=== PATIENT | male | born 2000 | race Caucasian/White ===

== ENCOUNTER 2020-01-04 21:31 | Emergency (ER) | payer OTHER ==
[~2020-01-04] VITALS: Ht 172.7 cm; Wt 85.4 kg
[2020-01-04 21:39] VITALS: BP 127/69; Ht 172.7 cm; Wt 85.4 kg
== END 2020-01-04 23:00 | disposition home or self-care (01) ==
LOC: ED 21:31
DX: S81.812A Laceration without foreign body, left lower leg, initial encounter (principal); X58.XXXA Exposure to other specified factors, initial encounter; Y93.89 Activity, other specified; Y92.89 Other specified places as the place of occurrence of the external cause; Y99.8 Other external cause status
CPT/HCPCS: J2001

== ENCOUNTER 2020-01-06 18:29 | Emergency (ER) | payer OTHER ==
[~2020-01-06] VITALS: Ht 175.3 cm; Wt 84.4 kg
[2020-01-06 18:57] VITALS: BP 122/74; Ht 175.3 cm; Wt 84.4 kg
== END 2020-01-06 19:03 | disposition home or self-care (01) ==
LOC: ED 18:29
DX: S81.812D Laceration without foreign body, left lower leg, subsequent encounter (principal); X58.XXXD Exposure to other specified factors, subsequent encounter

== ENCOUNTER 2020-01-11 09:31 | Emergency (ER) | payer OTHER ==
[~2020-01-11] VITALS: Ht 175.3 cm; Wt 85.7 kg
[2020-01-11 09:40] VITALS: BP 131/84; Ht 175.3 cm; Wt 85.7 kg
== END 2020-01-11 10:56 | disposition home or self-care (01) ==
LOC: ED 09:31
DX: S81.812D Laceration without foreign body, left lower leg, subsequent encounter (principal); X58.XXXD Exposure to other specified factors, subsequent encounter

== ENCOUNTER 2020-01-13 18:21 | Emergency (ER) | payer OTHER ==
[~2020-01-13] VITALS: Ht 175.3 cm; Wt 85.7 kg
[2020-01-13 18:55] VITALS: Ht 175.3 cm; Wt 85.7 kg
== END 2020-01-13 20:36 | disposition home or self-care (01) ==
LOC: ED 18:21
DX: S81.812D Laceration without foreign body, left lower leg, subsequent encounter (principal); X58.XXXD Exposure to other specified factors, subsequent encounter

== ENCOUNTER 2020-01-20 00:06 | Emergency (ER) | payer OTHER ==
[~2020-01-20] VITALS: Ht 175.3 cm; Wt 85.7 kg
[2020-01-20 00:08] VITALS: Ht 175.3 cm; Wt 85.7 kg
[2020-01-20 00:33] VITALS: BP 122/71
== END 2020-01-20 00:33 | disposition home or self-care (01) ==
LOC: ED 00:06
DX: L25.9 Unspecified contact dermatitis, unspecified cause (principal)